=== PATIENT | female | born 1985 | race Caucasian/White ===

== ENCOUNTER 2021-07-26 16:10 | Emergency (ER) | payer OTHER ==
[2021-07-26 16:47] LABS: HEMOGLOBIN 12.9 gm/dl (12.3-15.3); RED BLOOD COUNT 4.05 M/UL (4.00-5.10); WHITE BLOOD COUNT 6.8 K/UL (4.5-11.0)
[2021-07-26 17:14] LABS: BUN/CREATININE RATIO 13 (0-10)
[2021-07-26] MEDS ORDERED: VISTARIL 50 MG50 MG PO (21:43)
[2021-07-26] MEDS ORDERED: IMITREX50 MG PO (21:43)
== END 2021-07-26 22:06 | disposition home or self-care (01) ==
LOC: ER1 16:10
PROVIDERS: Nurse Practitioner
DX: R42 Dizziness and giddiness (principal); R51.9 Headache, unspecified; F17.290 Nicotine dependence, other tobacco product, uncomplicated
CPT/HCPCS: 70450; 71045; 80053; 81001; 82550; 82553; 84439; 84443; 84484; 84703; 85025; 93005; 96374; 96375; 99284; J1200; J1885; J2765

== ENCOUNTER → 2021-10-10 | Outpatient (CLI) | payer OTHER ==
[~2021-10-10] MED LIST: CLARITIN10 M2 PO; ESCITALOPRAM OX10 MG PO; GABAPENTIN800 MG PO; HYDROXYZINE PAM25 MG PO; IMITREX50 MG PO; MELATONIN5 M2 PO; MELOXICAM15 MG PO; OMEPRAZOLE20 M1 PO; TIZANIDINE HCL2 MG PO; VENLAFAXINE HC150 MG PO; VISTARIL 50 MG50 MG PO; WELLBUTRIN XL150 MG PO
[2021-10-10 11:08] LABS: HEMOGLOBIN 11.2 gm/dl (12.3-15.3); RED BLOOD COUNT 3.59 M/UL (4.00-5.10)
== END ==
LOC: OPSV2 10:00
PROVIDERS: Obstetrics & Gynecology
DX: Z01.818 Encounter for other preprocedural examination (principal); R10.2 Pelvic and perineal pain
CPT/HCPCS: 81001; 85025; 93005

== ENCOUNTER → 2021-10-18 | Day surgery (SDC) | payer OTHER ==
[~2021-10-18] MED LIST changes: +COLACE100 MG PO; +IBUPROFEN600 MG PO; +PERCOCET 5-3251 EACH PO
== END | disposition home or self-care (01) ==
LOC: OR 06:00
DX: N71.1 Chronic inflammatory disease of uterus (principal); N93.9 Abnormal uterine and vaginal bleeding, unspecified; N73.6 Female pelvic peritoneal adhesions (postinfective); K21.9 Gastro-esophageal reflux disease without esophagitis; M19.90 Unspecified osteoarthritis, unspecified site; F41.9 Anxiety disorder, unspecified; F43.10 Post-traumatic stress disorder, unspecified; F17.210 Nicotine dependence, cigarettes, uncomplicated; Z98.51 Tubal ligation status; Z88.6 Allergy status to analgesic agent; Z88.8 Allergy status to other drugs, medicaments and biological substances; Z79.899 Other long term (current) drug therapy
CPT/HCPCS: 84703; J1100; J1170; J2001; J2250; J2405; J2704; J2795; J3010

== ENCOUNTER 2021-10-30 13:47 | Emergency (ER) | payer OTHER ==
[2021-10-30] MEDS ORDERED: OMNICEF 300 MG300 MG PO (16:04)
== END 2021-10-30 16:28 | disposition home or self-care (01) ==
LOC: ER1 13:47
DX: S82.891A Other fracture of right lower leg, initial encounter for closed fracture (principal); H66.91 Otitis media, unspecified, right ear; F17.290 Nicotine dependence, other tobacco product, uncomplicated; X50.9XXA Other and unspecified overexertion or strenuous movements or postures, initial encounter
CPT/HCPCS: 73610; 73630; 99283

== ENCOUNTER → 2021-11-11 | Outpatient (CLI) | payer OTHER ==
[~2021-11-11] MED LIST changes: +OMNICEF 300 MG300 MG PO
== END ==
LOC: KOH-I 13:18
DX: S82.891A Other fracture of right lower leg, initial encounter for closed fracture (principal)
CPT/HCPCS: 73610

== ENCOUNTER → 2021-12-09 | Outpatient (CLI) | payer OTHER | LOC: KOH-I 10:22 | DX: S82.891D Other fracture of right lower leg, subsequent encounter for closed fracture with routine healing (principal) | CPT/HCPCS: 73610 ==

== ENCOUNTER → 2021-12-16 | Outpatient (CLI) | payer OTHER | LOC: KOH-I 13:27 | DX: S93.491A Sprain of other ligament of right ankle, initial encounter (principal); S96.811A Strain of other specified muscles and tendons at ankle and foot level, right foot, initial encounter; S82.891A Other fracture of right lower leg, initial encounter for closed fracture | CPT/HCPCS: 73721 ==

== ENCOUNTER → 2021-12-30 | Outpatient (CLI) | payer OTHER ==
[~2021-12-30] MED LIST changes: +AMMONIUM LACTA225 GM TOP; +CLOTRIMAZOLE10 ML TP; +FAMOTIDINE20 MG PO; +HYDROCODON-ACE1 EAC4 PO; +LAMICTAL25 MG PO; +TYLENOL EXTRA500 MG PO; -VENLAFAXINE HC150 MG PO; +VENLAFAXINE HCL75 M2 PO; +VITAMIN D21250 MCG PO; +[UNRECOGNIZED DRUG - OTHER]
[2021-12-30 12:09] LABS: HEMOGLOBIN 11.8 gm/dl (12.3-15.3); RED BLOOD COUNT 3.82 M/UL (4.00-5.10); WHITE BLOOD COUNT 5.3 K/UL (4.5-11.0)
[2021-12-30 12:23] LABS: BUN/CREATININE RATIO 11 (0-10)
== END ==
LOC: OPSV2 10:00
PROVIDERS: Podiatrist Foot & Ankle Surgery
DX: Z01.818 Encounter for other preprocedural examination (principal)
CPT/HCPCS: 36415; 71046; 80048; 85027

== ENCOUNTER → 2022-01-10 | Day surgery (SDC) | payer OTHER ==
[~2022-01-10] VITALS: Ht 160 cm; Wt 74.4 kg
== END | disposition home or self-care (01) ==
LOC: OR 06:42
DX: S82.891A Other fracture of right lower leg, initial encounter for closed fracture (principal); G89.29 Other chronic pain; M25.371 Other instability, right ankle; K21.9 Gastro-esophageal reflux disease without esophagitis; F41.9 Anxiety disorder, unspecified; F32.A Depression, unspecified; M19.90 Unspecified osteoarthritis, unspecified site; Z88.6 Allergy status to analgesic agent; Z79.899 Other long term (current) drug therapy
CPT/HCPCS: 73610; 76000; C1713; J0171; J0690; J1100; J1170; J2001; J2250; J2405; J2550; J2704; J2795; J3010

== ENCOUNTER → 2022-01-20 | Outpatient (CLI) | payer OTHER | LOC: KOH-I 14:21 | DX: S82.891A Other fracture of right lower leg, initial encounter for closed fracture (principal) | CPT/HCPCS: 73610 ==